=== PATIENT | male | born 1980 | race Caucasian/White ===

== ENCOUNTER 2019-08-11 16:33 | Emergency (ER) | payer OTHER ==
[~2019-08-11] VITALS: Ht 185.4 cm; Wt 81.7 kg
[~2019-08-11 16:33] MED LIST: ACET500; ACET650SUP; ALBU90OI INH; AMOX500 PO; ASPI325EC; CEPH500; CEPH500 PO; CIPR500 PO; CITA20 PO; CLIN150 PO; CODACE30 PO; CYCL10 PO; DOXY100 PO; GABA300 PO; HYDACE25S PR; HYDACE5; HYDACE5 PO; HYDACE5325 PO; HYOS.125 SL; IBUP400 PO; IBUP600 PO; IBUP800 PO; METR500 PO; NAPR500 PO; OXYACE5T PO; OXYACE7.5T PO; PENVK500 PO; PROCODE120 PO; PROM25 PO; RXCEPH500 PO; RXHYD5325 PO; RXHYDACE PO; RXOXYACE PO; RXTRAM50 PO; SULTRIDS PO; TRAM50 PO
[2019-08-11] MEDS ORDERED: Augmentin 875-1 EACH PO (16:41)
[2019-08-11] MEDS ORDERED: SUBOXONE 8 MG-1 EACH SL (16:45)
== END 2019-08-11 16:46 | disposition home or self-care (01) ==
LOC: ER 16:33
DX: K04.7 Periapical abscess without sinus (principal); K02.9 Dental caries, unspecified; F17.210 Nicotine dependence, cigarettes, uncomplicated; Z88.6 Allergy status to analgesic agent; Z88.8 Allergy status to other drugs, medicaments and biological substances
CPT/HCPCS: 99282

== ENCOUNTER 2019-10-26 04:58 | Inpatient (IN) | payer OTHER ==
[~2019-10-26] VITALS: Ht 185.4 cm; Wt 78.1 kg
[~2019-10-26 04:58] MED LIST changes: +Augmentin 875-1 EACH PO; +BUPRENORPHINE HC8 MG SL
[2019-10-26 05:34] LABS: BASOPHILS PERCENT AUTO 1 % (0-2); EOSINOPHILS PERCENT AUTO 0 % (0-6); Hematocrit 38.7 % (37.0-53.0); Hemoglobin 13.2 g/dL (13.5-17.5); IMMATURE GRAN ABSOLUTE AUTO 0.01 K/mm3 (0.00-0.10); IMMATURE GRAN PERCENT AUTO 0 % (0-1); LYMPHOCYTES ABSOLUTE AUTO 2.16 K/mm3 (0.84-5.20); LYMPHOCYTES PERCENT AUTO 31 % (21-46); MONOCYTES ABSOLUTE AUTO 1.28 K/mm3 (0.16-1.47); MONOCYTES PERCENT AUTO 19 % (4-13); Mean Corpuscular HGB 30.4 pg (26.0-34.0); Mean Corpuscular HGB Conc 34.1 g/dL (31.5-36.5); Mean Corpuscular Volume 89 fL (80-100); Mean Platelet Volume 9.4 fL (9.1-12.4); NEUTROPHILS ABSOLUTE AUTO 3.37 K/mm3 (1.96-9.15); NEUTROPHILS PERCENT AUTO 49 % (41-73); Platelet Count 264 K/mm3 (150-400); RDW Standard Deviation 39.7 fL (35.1-46.3); Red Blood Cell Count 4.34 M/mm3 (4.30-5.90); White Blood Cell Count 6.92 K/mm3 (4.00-11.30)
[2019-10-26 05:51] LABS: Alanine Aminotransfer (ALT/SGP 58 U/L (12-78); Albumin/Globulin Ratio 1.1 (0.8-1.8); Alk Phos 106 U/L (50-136); Anion Gap 6 mmol/L (6-16); Aspartate Aminotrans (AST/SGOT 56 U/L (12-37); Bilirubin, Total 0.5 mg/dL (0.1-1.0); Blood Urea Nitrogen 16 mg/dL (8-24); CO2, Blood 27 mmol/L (21-32); Calcium, Blood 9.2 mg/dL (8.5-10.1); Chloride, Blood 110 mmol/L (98-108); Creatinine, Blood 0.84 mg/dL (0.60-1.20); Globulin, Blood 3.5 g/dL (2.2-4.0); Glomerular Filtration Rate >60 (60-); Glucose, Blood 88 mg/dL (70-99); Potassium, Blood 3.5 mmol/L (3.5-5.5); Sodium, Blood 143 mmol/L (136-145); Total Protein, Blood 7.5 g/dL (6.4-8.2)
[2019-10-26 07:52] LABS: PCO2 Arterial 48.1 mmHg (35-45); PO2 Arterial 113 mmHg (80-100)
[2019-10-26 07:56] LABS: pH Blood Arterial 7.25 (7.35-7.45)
[2019-10-26 08:36] LABS: U Amphetamine Screen DETECTED; U Barbituate Screen Not Detected; U Benzodiazapine Screen DETECTED; U Buprenorphine Screen DETECTED; U Cannabinoids Screen Not Detected; U Cocaine Screen Not Detected; U Methadone Screen Not Detected; U Methamphetamine Screen Not Detected; U Opiates Screen Not Detected; U Oxycodone Screen Not Detected; U Phencyclidine Screen Not Detected; U Propoxyphene Screen Not Detected
[2019-10-26 09:09] LABS: Alanine Aminotransfer (ALT/SGP 57 U/L (12-78); Albumin/Globulin Ratio 1.3 (0.8-1.8); Alk Phos 106 U/L (50-136); Anion Gap 10 mmol/L (6-16); Aspartate Aminotrans (AST/SGOT 65 U/L (12-37); Bilirubin, Total 0.8 mg/dL (0.1-1.0); Blood Urea Nitrogen 18 mg/dL (8-24); Bun/Creatinine Ratio 21.4 (12.0-20.0); CO2, Blood 23 mmol/L (21-32); Calcium, Blood 8.8 mg/dL (8.5-10.1); Chloride, Blood 113 mmol/L (98-108); Creatine Kinase MB 37.4 ng/mL (0.0-3.6); Creatinine, Blood 0.84 mg/dL (0.60-1.20); Globulin, Blood 3.1 g/dL (2.2-4.0); Glomerular Filtration Rate >60 (60-); Glucose, Blood 87 mg/dL (70-99); Magnesium, Blood 2.5 mg/dL (1.6-2.4); Potassium, Blood 3.3 mmol/L (3.5-5.5); Sodium, Blood 146 mmol/L (136-145); Total Protein, Blood 7.1 g/dL (6.4-8.2); Troponin I <0.015 ng/mL (0.000-0.040)
[2019-10-26 09:17] LABS: CPK Creatine Kinase 949 U/L (39-308); Creatine Kinase MB Index 3.9 (0.0-4.0)
[2019-10-26 09:21] LABS: Thyroid Stimulating Hormone 0.883 uIU/mL (0.360-4.800)
--- NOTE | 2019-10-26 09:30 | NUR ---
ADMISSION: REPORT RECEIVED FROM REJI Rouse RN IN ED. PT ARRIVED TO ICU-13 AT 0900. TAT RESTRAINTS IN PLACE x4 EXTREMITIES. PT INTUBATED & SEDATED, PROPOFOL INFUSING AT 50 MCG/KG/HR & PT HAS EYES OPEN, PUPILS ROUND & REACTIVE TO LIGHT BUT NO TRACKING IS NOTED. HE IS CURRENTLY RESTING QUIETLY FOLLOWING VERSED ADMIN IN ED. LS ARE CLEAR T/O, PT ON VENT SETTINGS: AC 16/400/5/40%, O2 SATS > 92%. MONITOR SHOWS SB-ST W/ HR AVG 90s, PT EXPERIENCING TACHYCARDIA UP TO 120s & THEN BRADYCARDIA IN 50s. BP STABLE W/ ARRHYTHMIA. OGT IN PLACE, CLAMPED. MAXWELL PATENT/ DRAINING YELLOW URINE. RESPIRATORY PCR COMPLETE & SENT TO LAB PER ORDERS. SKIN OVERALL CDI.
[2019-10-26 11:29] LABS: Base Excess Venous -4.4 mmol/L; Bicarbonate Venous 20.8 mmol/L (24.0-30.0); PCO2 Venous 45.4 mmHg (38-42); PO2 Venous 136 mmHg (38-42)
[2019-10-26 11:52] LABS: Salicylate 2.3 mg/dL (2.8-20.0)
[2019-10-26 12:03] LABS: CPK Creatine Kinase 1543 U/L (39-308)
[2019-10-26 12:04] LABS: Acetaminophen, Random <2.0 ug/mL (10.0-30.0)
--- NOTE | 2019-10-26 12:33 | NUR ---
DR. TOMAS / UPDATE: PROVIDER NOTIFIED OF CONSULTATION, ORDERS HAVE BEEN PLACED FOR SEDATION ADJUNCT & FURTHER LAB WORK. PROVIDER AT BEDSIDE TO EVAL PT. PROVIDER CALLS RN SABIHA Ivey TO BEDSIDE PT IS BECOMING INCREASINGLY AGITATED, THRASHING AROUND IN THE BED. HE IS NOT PURPOSEFUL IN HIS MOVEMENT, IS NOT TRACKING STAFF MEMBERS & IS UNABLE TO FOLLOW DIRECTION. CONTINUOUS FENTANYL DRIP RATE INCREASED PER DR TOMAS AT THIS TIME & PT IS NOW CALM/ RESTING QUIETLY. DURING THIS TIME, THIS RN HAS BEEN ON THE PHONE W/ THE PT's SPOUSE, GABY. SHE IS ERRATIC IN CONVERSATION & HAS DIFFICULTY GRASPING DETAILS OF PT's CURRENT CONDITION. THIS RN MUST REPEAT THAT HE CANNOT SPEAK ON THE PHONE R/T ETT NUMEROUS TIMES AT WHICH POINTS THE SPOUSE BEGINS CRYING UNCONTROLLABLY & SHOUTING AT THIS RN THROUGH THE PHONE. SHE IS CONSOLED & REMINDED THAT AT THIS POINT HE IS STABLE. SHE CALMS SOME & VERBALIZES UNDERSTANDING BUT REMAINS PARANOID, TELLING THIS RN THAT HER & THE PT HAVE SOMEONE TRYING TO KILL THEM & THAT SHE IS SURE THAT IS WHAT HAPPENED IN THIS INSTANCE. SHE STS THAT THE PT "SWORE ON HIS GRAVE" THAT HE HASN'T RESUMED USING ILLICIT DRUGS BUT THAT HE HAS BEEN ACTING "STRANGE" FOR ALMOST 1 WK NOW. WILL CONTINUE TO MONITOR & UPDATE NEEDED.
[2019-10-26 13:04] LABS: Adenovirus Not Detected (NOT DETECT); Bordetella pertussis Not Detected (NOT DETECT); Chlamydophila pneumoniae Not Detected (NOT DETECT); Coronavirus 229E Not Detected (NOT DETECT); Coronavirus HKU1 Not Detected (NOT DETECT); Coronavirus NL63 Not Detected (NOT DETECT); Coronavirus OC43 Not Detected (NOT DETECT); Human Metapneumovirus Not Detected (NOT DETECT); Human Rhinovirus/Enterovirus Not Detected (NOT DETECT); Influenza A Not Detected (NOT DETECT); Influenza A/2009-H1 Not Detected (NOT DETECT); Influenza A/H1 Not Detected (NOT DETECT); Influenza A/H3 Not Detected (NOT DETECT); Influenza B Not Detected (NOT DETECT); Mycoplasma pneumoniae Not Detected (NOT DETECT); Parainfluenza Virus 1 Not Detected (NOT DETECT); Parainfluenza Virus 2 Not Detected (NOT DETECT); Parainfluenza Virus 3 Not Detected (NOT DETECT); Parainfluenza Virus 4 Not Detected (NOT DETECT); Respiratory Syncytial Virus Not Detected (NOT DETECT)
[2019-10-26 14:45] LABS: Creatine Kinase MB 61.3 ng/mL (0.0-3.6)
[2019-10-26 14:55] LABS: Troponin I <0.015 ng/mL (0.000-0.040)
[2019-10-26 15:00] LABS: CPK Creatine Kinase 2622 U/L (39-308); Creatine Kinase MB Index 2.3 (0.0-4.0)
--- NOTE | 2019-10-26 15:30 | NUR ---
PROVIDER COMMUNICATION: CALL TO DR TOMAS REGARDING PT's INCREASED CK & CKMB LEVELS. HE STS MAY BE PROPOFOL RELATED, WOULD LIKE VERSED DRIP TO BE STARTED & PROPOFOL TO THEN BE TITRATED OFF IF PT TOLERATES. RECHECK CK, LACTIC & VBG AT 1999, ORDERS PLACED.
--- NOTE | 2019-10-26 16:00 | NUR ---
PT's SPOUSE: CALL FROM GABY, PT's SPOUSE REQUESTING UPDATE. SHE HAS BEEN UPDATED THAT THE PT IS CURRENTLY STABLE & REQUESTS TO COME SEE HIM. THIS RN NOTIFIES HER THAT DUE TO HER ALTERCATIONS W/ STAFF & SECURTITY IN THE ED, SHE HAS BEEN TRESPASSED & IS NOT ALLOWED TO VISIT AT THIS TIME. SHE BECOMES VERY ANGRY WITH THIS RN & BEGINS YELLING, STS SHE IS BEING DISCRIMINATED AGAINST BECAUSE OF HER, & THE PT's, HX OF DRUG ABUSE. THIS RN EXPLAINS TO GABY THAT HER PAST HAS NOTHING TO DO W/ THIS & THAT THE DECISION TO KEEP HER OUT OF FACILITY WAS MADE BY STAFF & SECURITY BASED SOLELY ON HER ACTIONS TODAY. SHE IS SOMEWHAT REDIRECTABLE W/ THIS BUT CONTINUES TO BE UPSET.
--- NOTE | 2019-10-26 18:06 | NUR ---
SHIFT SUMMARY: NO ACUTE CHANGES SINCE PRIOR UPDATES. THIS RN HAS UPDATED THE PT's MOTHER, MINE, WHO IS LISTED NOK ON FACESHEET, REGARDING PT's CURRENT CONDITION. LS REMAIN CLEAR T/O, VENT ON SPONTANEOUS W/ PS 5 & 30% FIO2. RR DECREASED TO 10 AT TIMES, PT CONTINUES W/ TIDAL VOLUMES > 500 & NO DESATS NOTED. MONITOR SHOWS SB W/ HR 50s, NO LONGER HAVING RUNS OF TACHYCARDIA, BP STABLE. OGT REMAINS CLAMPED, MAXWELL PATENT/ DRAINING. SKIN OVERALL CDI, REDDENED SPLOTCHY AREAS NOTED TO BILAT SHINS. WILL CONTINUE TO MONITOR & REPORT OFF TO ONCOMING RN.
[2019-10-26] MEDS ORDERED: Pravachol40 MG PO (18:30)
[2019-10-26] MEDS ORDERED: OMEP20ER PO (18:31)
[2019-10-26] MEDS ORDERED: NITR.4SL SL (18:31)
[2019-10-26] MEDS ORDERED: GABA800 PO (18:31)
[2019-10-26 20:24] LABS: Base Excess Venous -0.8 mmol/L; Bicarbonate Venous 23.2 mmol/L (24.0-30.0); PCO2 Venous 43.3 mmHg (38-42); PO2 Venous 42.4 mmHg (38-42); pH Blood Venous 7.36 (7.34-7.37)
--- NOTE | 2019-10-26 20:29 | NUR ---
PATIENT INTUBATED AND SEDATED WITH ETT IN PLACE VENT SET AT SPONT PEEP 5 FIO2 30% PATIENT RESP 13-18, OCCASIONAL COUGH, NO SPUTUM SUCTIONED. PATIENT SEDATED WITH PROPOFOL 25MCG, VERSED TITRATED TO 3MG, AND FENTANYL AT 100MCG. ATTEMPTING TO TITRATE PROPOFOL OFF. OG CLAMPED. PATIENT AWAKENS EASILY, PULLING ON RESTRAINTS, NOT FOLLOWING DIRECTIONS AND NOT ALWAYS PURPOSEFUL. [address] DUE TO UNPREDICTABLE SEDATION AND BEHAVIOR.
[2019-10-26 20:50] LABS: Creatine Kinase MB 84.6 ng/mL (0.0-3.6); Troponin I <0.015 ng/mL (0.000-0.040)
[2019-10-26 21:00] LABS: CPK Creatine Kinase 3796 U/L (39-308); Creatine Kinase MB Index 2.2 (0.0-4.0)
[2019-10-27 03:37] LABS: BASOPHILS ABSOLUTE AUTO 0.06 K/mm3 (0.00-0.23); BASOPHILS PERCENT AUTO 1 % (0-2); EOSINOPHILS PERCENT AUTO 0 % (0-6); Hematocrit 38.5 % (37.0-53.0); Hemoglobin 12.8 g/dL (13.5-17.5); IMMATURE GRAN ABSOLUTE AUTO 0.01 K/mm3 (0.00-0.10); IMMATURE GRAN PERCENT AUTO 0 % (0-1); LYMPHOCYTES ABSOLUTE AUTO 1.52 K/mm3 (0.84-5.20); LYMPHOCYTES PERCENT AUTO 22 % (21-46); MONOCYTES ABSOLUTE AUTO 0.81 K/mm3 (0.16-1.47); MONOCYTES PERCENT AUTO 12 % (4-13); Mean Corpuscular HGB 29.9 pg (26.0-34.0); Mean Corpuscular HGB Conc 33.2 g/dL (31.5-36.5); Mean Corpuscular Volume 90 fL (80-100); Mean Platelet Volume 9.8 fL (9.1-12.4); NEUTROPHILS ABSOLUTE AUTO 4.49 K/mm3 (1.96-9.15); NEUTROPHILS PERCENT AUTO 65 % (41-73); Platelet Count 237 K/mm3 (150-400); RDW Coefficient Variation 12.4 % (11.7-14.2); RDW Standard Deviation 41.2 fL (35.1-46.3); Red Blood Cell Count 4.28 M/mm3 (4.30-5.90); White Blood Cell Count 6.89 K/mm3 (4.00-11.30)
[2019-10-27 04:01] LABS: Anion Gap 9 mmol/L (6-16); Blood Urea Nitrogen 15 mg/dL (8-24); Bun/Creatinine Ratio 22.3 (12.0-20.0); CO2, Blood 25 mmol/L (21-32); Calcium, Blood 8.2 mg/dL (8.5-10.1); Chloride, Blood 110 mmol/L (98-108); Creatinine, Blood 0.67 mg/dL (0.60-1.20); Glomerular Filtration Rate >60 (60-); Glucose, Blood 60 mg/dL (70-99); Magnesium, Blood 2.1 mg/dL (1.6-2.4); Phosphorus, Blood 2.5 mg/dL (2.5-4.9); Sodium, Blood 144 mmol/L (136-145)
[2019-10-27 04:11] LABS: CPK Creatine Kinase 2987 U/L (39-308); Creatine Kinase MB Index 2.1 (0.0-4.0)
--- NOTE | 2019-10-27 07:23 | NUR ---
SUMMARY PATIENT REMAINS INTUBATED AND SEDATED. 4 POINT RESTRAINTS CONTINUE, DURING ORAL CARE AND REPOSITIONING PATIENT PUSHES AWAY AND KICKS HIS FEET, NOT OPENING HIS EYES OR FOLLOWING DIRECTIONS. PROPOFOL IS OFF AND VERSED IS AT 3MG/HR WITH FENTANYL AT 100 MCG/HR. VENT REMAINS AT SPONT T/O NIGHT. VERY GOOD URINE OUTPUT WITH LASIX.
--- NOTE | 2019-10-27 08:00 | NUR ---
ASSUMED CARE: REPORT RECEIVED FROM TY Lopez RN. ASSUMED CARE OF THIS PT AT APPROX 0700. ON ASSESSMENT, THE PT IS RESTING QUIETLY. HE OPENS HIS EYES TO VERBAL STIMULUS & IS FOLLOWING DIRECTION W/O DIFFICULTY. HE IS CALM & COOPERATIVE AT THIS TIME. LS ARE CLEAR/DIM T/O, VENT SETTINGS: SPONTANEOUS W/ PS 5 & 25% FIO2. MONITOR SHOWS SR W/ HR 70s, BP STABLE. OGT CLAMPED, ABD SOFT W/ NO GRIMACE TO PALPATION. MAXWELL PATENT/ DRAINING YELLOW URINE. SKIN OVERALL CDI. WILL CONTINUE TO MONITOR & UPDATE NEEDED.
--- NOTE | 2019-10-27 10:05 | NUR ---
LOW BLOOD GLUCOSE: LOW BLOOD GLUCOSE NOTED ON AM LABS WHEN REVIEWING, PT SPOT CHECKED & IS FOUND TO HAVE CBG OF 43. 12.5GM D50 PULLED ON OVERRIDE & GIVEN PER HYPOGLYCEMIA PROTOCOL & PROVIDER NOTIFIED. SHE STS OKAY TO START D51/2 NS AT 75 ML/HR x1 BAG. WILL READDRESS WHEN ROUNDING ON THIS PT, POSSIBLE EXTUBATION TODAY.
--- NOTE | 2019-10-27 11:25 | NUR ---
DR. WANG / EXTUBATION: PROVIDER AT BEDSIDE TO GIANFRANCO PT. HE AWAKENS EASILY TO VERBAL STIMULUS AT THAT TIME & IS FOLLOWING COMMANDS/ TRACKING W/ EYES. PROVIDER GIVES VERBAL ORDER TO D/C SEDATION & EXTUBATE ONCE PT FULLY AWAKE. VALERIE Medeiros, RT, AT BEDSIDE W/ VERBAL ORDERS TO EXTUBATE. PT NODS HEAD "YES" THAT HE WOULD LIKE ETT REMOVED & CONTINUES FOLLOWING COMMANDS W/O DIFFICULTY. HE IS CALM & COOPERATIVE. PT EXTUBATED AT 1118 TO ROOM AIR W/ NO DESATURATIONS. HE HAS STRONG COUGH & IS ABLE TO SUCTION SELF ORALLY W/ YANKAUR. HE NODS HEAD "YES" IN UNDERSTANDING THAT HE IS AT [facility] IN THE ICU, & THAT HE HAS BEEN HERE APPROX 1 DAY.
--- NOTE | 2019-10-27 12:16 | NUR ---
UPDATE: PT CONTINUES RESTING W/O DIFFICULTY S/P EXTUBATION. LS REMAIN CLEAR & O2 SATS > 95% ON RA. MONITOR SHOWS SR W/ HR 70s, BP STABLE. WILL CONTINUE TO MONITOR & UPDATE NEEDED.
--- NOTE | 2019-10-27 14:56 | NUR ---
BEDSIDE SWALLOW EVAL: BEDSIDE SWALLOW EVAL IS COMPLETE. PT TOLERATING SIPS OF PO WATER W/O DIFFICULTY. HE IS AGAIN DROWSY & INFORMED THAT HE WILL NOT BE ALLOWED TO DRINK MORE OR EAT FOOD UNTIL HE IS FULLY ALERT AGAIN, HE IS AGREEABLE TO THIS & IS NOW RESTING QUIETLY AGAIN.
--- NOTE | 2019-10-27 14:58 | NUR ---
UPDATE: THE PT HAS SPOKEN ON THE PHONE W/ HIS , GABY. THIS RN HAS ALSO SPOKEN W/ GABY & SHE HAS BEEN UPDATED ON PT's CONDITION, INCLUDING TIME OF EXTUBATION & SEDATIVE MEDICATIONS THAT MAY BE CONTRIBUTING TO CONTINUED DROWSINESS.
--- NOTE | 2019-10-27 17:26 | NUR ---
SHIFT SUMMARY: NO ACUTE CHANGES SINCE PRIOR UPDATES. PT CONTINUES TO BE DROWSY BUT AWAKENS EASILY TO VERBAL STIMULI AT WHICH POINT HE IS A&O TO PERSON, PLACE, SELF & FOLLOWING DIRECTION. LS REMAIN CLEAR & PT ON RA W/ O2 SATS > 92%. MONITOR SHOWS SR W/ HR 70s, BP STABLE. NO GI COMPLAINTS, DINNER TRAY HAS BEEN ORDERED SINCE PT PASSED BEDSIDE SWALLOW EVAL W/O DIFFICUTLY. MAXWELL PATENT/ DRAINING BUT WILL BE REMOVED BEFORE END OF SHIFT PER PROVIDER ORDERS. SKIN OVERALL CDI. WILL CONTINUE TO MONITOR & REPORT OFF TO ONCOMING RN.
--- NOTE | 2019-10-27 18:32 | NUR ---
PT LEAVING AMA: PT STS HE NEEDS TO GO HOME TONIGHT TO TEND TO HIS CHILDREN HIS STS SHE CANNOT HANDLE THEM. RISK OF LEAVING AGAINST MEDICAL ADVICE IS DISCUSSED & THE PT VERBALIZES UNDERSTANDING. PT HAS DRESSED HIMSELF & STS BEING READY TO GO. RELEASE OF RESPONSIBILITY FOR D/C AMA PAPER HAS BEEN SIGNED & THE PT's FRIEND/ NEIGHBOR HAS TAKEN HIM OUT VIA WC AT APPROX 1825. PIVs, MAXWELL & ALL MONITORS HAVE BEEN REMOVED PRIOR TO PT LEAVING.
== END 2019-10-27 18:30 | disposition left against medical advice (07) | DRG 917 ==
LOC: ER 04:58 → ICUW 08:00
PROVIDERS: Emergency Medicine; Internal Medicine Critical Care Medicine; ADMIT Family Medicine
PROC: 0BH17EZ Insertion of Endotracheal Airway into Trachea, Via Natural or Artificial Opening (ICD-10-PCS; principal; 2019-10-26)
PROC: 5A1935Z Respiratory Ventilation, Less than 24 Consecutive Hours (ICD-10-PCS; 2019-10-26)
DX: T40.601A Poisoning by unspecified narcotics, accidental (unintentional), initial encounter (principal); G93.41 Metabolic encephalopathy; E87.2 Acidosis; R45.1 Restlessness and agitation; I16.0 Hypertensive urgency; F19.10 Other psychoactive substance abuse, uncomplicated; F17.210 Nicotine dependence, cigarettes, uncomplicated; Z53.29 Procedure and treatment not carried out because of patient's decision for other reasons; Z78.1 Physical restraint status
CPT/HCPCS: 0099U; 31500; 31720; 36415; 36600; 51702; 71045; 80048; 80053; 82140; 82150; 82550; 82553; 82803; 82947; 83605; 83690; 83735; 84100; 84145; 84443; 84484; 85025; 87086; 93005; 93010; 94002; 94003; A9270; C9113; G0480; J0330; J1200; J1630; J1650; J1940; J2060; J2250; J2270; J2405; J2704; J3010; J3480; J7030; J7042; J7120

== ENCOUNTER 2020-03-17 19:14 | Emergency (ER) | payer OTHER ==
[~2020-03-17] VITALS: Ht 185.4 cm; Wt 76.2 kg
[~2020-03-17 19:14] MED LIST changes: +GABA800 PO; +NITR.4SL SL; +OMEP20ER PO; +Pravachol40 MG PO
[2020-03-17] MEDS ORDERED: OXYACE7.5T PO (20:43)
== END 2020-03-17 20:53 | disposition home or self-care (01) ==
LOC: ER 19:14
DX: S92.511A Displaced fracture of proximal phalanx of right lesser toe(s), initial encounter for closed fracture (principal); F17.200 Nicotine dependence, unspecified, uncomplicated; Z88.8 Allergy status to other drugs, medicaments and biological substances; Z79.899 Other long term (current) drug therapy; W22.8XXA Striking against or struck by other objects, initial encounter
CPT/HCPCS: 73660; 99283-25; A9270

== ENCOUNTER 2022-07-26 20:15 | Emergency (ER) | payer OTHER ==
[~2022-07-26] VITALS: Ht 190.5 cm; Wt 97.5 kg
[2022-07-27] MEDS ORDERED: DICLOFENAC SOD100 G1 TOP (08:36)
[2022-07-27] MEDS ORDERED: Prednisone20 MG PO (08:36)
== END 2022-07-26 21:53 | disposition left against medical advice (07) ==
LOC: ER 20:15
DX: M79.605 Pain in left leg (principal); Z79.899 Other long term (current) drug therapy; Z53.21 Procedure and treatment not carried out due to patient leaving prior to being seen by health care provider
CPT/HCPCS: 99281

== ENCOUNTER 2022-07-27 07:50 | Emergency (ER) | payer OTHER ==
[~2022-07-27] VITALS: Ht 182.9 cm; Wt 77.1 kg
[2022-07-27] MEDS ORDERED: Prednisone20 MG PO (08:36)
[2022-07-27] MEDS ORDERED: DICLOFENAC SOD100 G1 TOP (08:36)
== END 2022-07-27 08:46 | disposition home or self-care (01) ==
LOC: ER 07:50
DX: M76.31 Iliotibial band syndrome, right leg (principal); F17.210 Nicotine dependence, cigarettes, uncomplicated; Z88.8 Allergy status to other drugs, medicaments and biological substances; Z79.899 Other long term (current) drug therapy
CPT/HCPCS: 96372; 99283-25; J1885; J7512